=== PATIENT | female | born 1950 | race Caucasian/White ===

== ENCOUNTER 2017-09-12 04:56 | Emergency (ER) | payer MEDICARE ==
--- NOTE | 2017-09-12 09:45 | CT ---
PRELIMINARY REPORT/[facility]/EMERGENTY AFTER-HOURS PROCEDURE CT Right Upper Extremity Without Intravenous Contrast, Shoulder EXAM DATE/TIME: 09/12/2017 5:44 AM CLINICAL HISTORY: 66 years old, female; Injury or trauma; Fall; Initial encounter; Dislocation and fracture, traumatic injury; Closed fracture; Shoulder; Right; Humerus; Neck of humerus; Patient HX: Fell out of bed on right shoulder TECHNIQUE: Axial computed tomography images of the right shoulder without intravenous contrast. All CT scans at this facility use at least one of these dose optimization techniques: automated exposure control; mA and/or kV adjustment per patient size (includes targeted exams where dose is matched to clinical indication); or iterative reconstruction. Coronal and sagittal reformatted images were created and reviewed. COMPARISON: No relevant prior studies available. FINDINGS: Bones/joints: Comminuted fracture involving the surgical neck of the right humerus as well as the hum eral head with impaction and mild displacement. Moderate degenerative changes of the acromioclavicula r joint. No dislocation. Soft tissues: Unremarkable. IMPRESSION: 1. Comminuted fracture involving the surgical neck of the right humerus as well as the humeral head w ith impaction and mild displacement. 2. Moderate degenerative changes of the acromioclavicular joint. Thank you for allowing us to participate in the care of your patient. Dictated and Authenticated by: Boaz Khan MD 09/12/2017 6:43 AM Central Time ([place] & [place]) FINAL REPORT EMERGENT AFTER HOURS NONCONTRAST CT RIGHT SHOULDER: DATE: 09/12/17. HISTORY: Injury after a fall from bed. Unable to lift arm. IMPRESSION: 1. Fracture surgical neck right humerus and right humeral head with mild impaction of fracture fragm ents. The distal fracture fragment is mildly displaced medially. The fracture may be minimally comm inuted as well. 2. Mild stranding adjacent to the level of the fracture with probable small joint effusion present. 3. No evidence of a dislocation. 4. No additional fracture is appreciated. Mild degenerative changes in the spine. 5. Findings are in agreement with the preliminary report by [facility]. POS: [facility]
--- NOTE | 2017-09-12 10:54 | RAD ---
THREE VIEWS OF RIGHT SHOULDER: DATE: 09/12/17. HISTORY: Fall from bed. Unable to lift arm. Trauma. FINDINGS: There is a fracture involving the neck of the right humerus with mild impaction of the fracture fragm ents. Distal fracture fragments are slightly displaced superiorly and medially. There is no disloca tion appreciated. Coracoclavicular and acromioclavicular distances appear to be within normal limits . IMPRESSION: Mildly displaced and impacted fracture involving the neck of the right humerus. POS: [id number]
== END 2017-09-12 07:03 | disposition home or self-care (01) ==
LOC: SCSER 04:56
DX: S42.211A Unspecified displaced fracture of surgical neck of right humerus, initial encounter for closed fracture (principal); W06.XXXA Fall from bed, initial encounter
CPT/HCPCS: 96372; J2270